=== PATIENT | male | born 1960 | race Hispanic/Latino ===

== ENCOUNTER 2022-07-15 12:04 | Emergency (ER) | payer MEDICARE, MEDICAID, SELFPAY ==
[2022-07-15] VITALS (26 sets, daily range): BP systolic 177–202; BP diastolic 103–120; PULSE 77–98; RESP 13–27; TEMP 36.7; O2SAT 90–100
--- NOTE | ~2022-07-15 | XR_ITS ---
EXAMINATION: XR chest 2V 07/15/2022 12:42 INDICATION: Chest pressure. Hypertension. PROCEDURE: PA and lateral views of the chest COMPARISON: No prior studies for comparison. FINDINGS: The lungs are clear. The cardiomediastinal silhouette is within normal limits. There are no pleural effusions. There is no pneumothorax suspected. IMPRESSION: 1: NO ACUTE CARDIOPULMONARY DISEASE. Reviewed, dictated and finalized at location A.
--- NOTE | ~2022-07-15 | CT_ITS ---
EXAMINATION: CT BRAIN W/O DATE: 07/15/2022 13:10 INDICATION: Headache and dizziness TECHNIQUE: Computed tomography (CT) of the head was performed without intravenous contrast. The dose- length product was 605.33 mGy-cm. Automated exposure control and iterative reconstruction technique w ere employed. COMPARISON: No prior studies for comparison. FINDINGS: Normal brain parenchymal volume for age. Normal vines-white differentiation. No acute intrac ranial hemorrhage, infarction, mass or mass effect. No ventriculomegaly or midline shift. Midline sagittal images demonstrate a normal corpus callosum, c raniovertebral junction and sella turcica. Basilar cisterns are patent. There is mucosal thickening of the sphenoid sinuses. Mastoids are pneumatized. No depressed skull fra ctures. IMPRESSION: 1. No acute intracranial abnormality. Reviewed, dictated and finalized at location A.
--- NOTE | 2022-07-15 12:17 | ECG_ITS ---
Measurements Intervals [place] Rate: 93 P: 60 [place]: 158 QRS: 76 QRSD: 84 T: 52 QT: 354 QTc: 441 Interpretive Statements SINUS RHYTHM POSSIBLE LEFT ATRIAL ENLARGEMENT [-0.1mV P WAVE IN V1/V2] NO PREVIOUS ECG AVAILABLE FOR COMPARISON Electronically Signed On 07-16-2022 11:24:27 CDT by Kae Salazar M.D.
[2022-07-15 12:34] LABS: Basophils Absolute Auto 0.1 K/mm3 (0.0-0.1); Basophils Percent Auto 0.7 % (0.2-1.2); Eosinophils Percent Auto 0.1 % (0-4.4); Hematocrit 43.5 % (42.0-52.0); Hemoglobin 15.5 g/dL (14.0-18.0); Immature Granulocyte Absolute 0.04 K/mm3 (0.00-0.031); Immature Granulocyte Percent A 0.4 % (0-0.5); Lymphocytes Percent Auto 15.2 % (18.3-44.2); Mean Corpuscular HGB Conc 35.6 g/dl (32-36); Mean Corpuscular Hemoglobin 31.3 pg (26-34); Mean Corpuscular Volume 87.9 fl (80-100); Mean Platelet Volume 8.9 fl (7.4-10.4); Monocytes Absolute Auto 0.5 K/mm3 (0.1-0.6); Monocytes Percent Auto 5.3 % (2.6-8.5); Neutrophils Absolute Auto 7.2 K/mm3 (1.3-6.7); Neutrophils Percent Auto 78.3 % (45.5-73.1); Platelet Count Result 247 k/mm3 (150-375); Red Blood Count 4.95 M/mm3 (4.6-6.20); Red Cell Distribution Width 11.4 % (11.5-14.5); White Blood Count 9.2 K/mm3 (4.5-10.0)
[2022-07-15 12:44] LABS: Prothrombin Time 12.7 Seconds (11.1-14.7)
[2022-07-15 12:45] LABS: Partial Thromboplastin Time 29.6 SECONDS (22.3-36.8)
[2022-07-15 12:46] LABS: Alanine Aminotransferase 41 U/L (6-50); Albumin Level 4.8 g/dL (3.5-5.1); Alkaline Phosphatase 63 U/L (38-126); Anion Gap 13 mmol/L (8-16); Aspartate Amino Transferase 47 U/L (17-59); Bilirubin,Total 0.8 mg/dL (0.2-1.3); Blood Urea Nitrogen 16 mg/dL (9-20); Calcium 9.4 mg/dL (8.4-10.2); Carbon Dioxide 27 mmol/L (22-30); Chloride 98 mmol/L (98-107); Estimated Glomerular Filt Rate > 60; Glucose 153 mg/dL (65-110); Lipase 37 U/L (23-300); Potassium 3.4 mmol/L (3.4-5.0); Sodium 138 mmol/L (137-145)
[2022-07-15 12:57] LABS: Troponin I < 0.012 ng/mL (0.000-0.034)
[2022-07-15] MEDS: ASPIRIN 81 MG CHEWABLE TABLET 324 MG PO (13:22)
[2022-07-15] MEDS: lisinopriL 20 MG TABLET PO (13:22)
[2022-07-15] MEDS: METOPROLOL TARTRATE 50 MG TAB 25 MG PO (13:22)
--- NOTE | 2022-07-15 13:33 | ED.GENADULT ---
HPI - General Adult General Chief complaint: Recheck/Abnormal Lab/Rx Stated complaint: High blood pressure Time Seen by Provider: 07/15/22 12:09 Source: patient, family and RN notes reviewed Mode of arrival: ambulatory Limitations: no limitations History of Present Illness HPI narrative: THis is a 62 year old male with history of DM, hypertension and hyperlipidemia who presents for evaluation of elevated blood pressure. Patient takes lisinopril 20 mg for hypertension. HE has been prescribed toprol xl as well but he does not take it. He did not take his lisinopril today either. His girlfriend has been checking his blood pressure this week it is has been elevated to 170s systolic. Today she checked it again and it was 190s systolic. He reports having nonradiating chest tightness after he saw that his blood pressure was high. He also reports some shortness of breath. He denies headache currently but he told triage he has headaches. He denies focal weakness. He states 5 years ago he was admitted to hospital for hypertension and he was evaluated by Dr. Null. He had a cardiac cath at that time that showed some disease but it did not require stenting. His girlfriend states patient drinks daily. she is concerned his hypertension is due to heavy drinking. Patient states he drinks a pack a beer daily but he denies history of withdrawal. Related Data Home Medications Medication Instructions Recorded Confirmed citalopram 20 mg tablet mg 07/15/22 esomeprazole magnesium 20 mg mg 07/15/22 capsule,delayed release eszopiclone 3 mg tablet mg 07/15/22 lisinopril 20 mg tablet mg 07/15/22 metoprolol succinate 50 mg mg PO 07/15/22 tablet,extended release 24 hr rosuvastatin 10 mg tablet mg 07/15/22 Allergies Allergy/AdvReac Type Severity Reaction Status Date / Time No Known Allergies Allergy Verified 07/15/22 12:16 Review of Systems Review of Systems: All systems reviewed & are unremarkable except as noted in HPI and below Constitutional: Constitutional: Denies chills, Denies fatigue and Denies fever(s) Eyes: Eyes: Denies change in vision and Denies photophobia ENT: Denies nasal congestion Cardiovascular: Cardiovascular: Reports chest pain, Denies rapid heart rate and Denies radiating jaw, neck or arm pain Respiratory: Respiratory: Denies cough PMFSH Past Medical History Medical History (Updated 07/15/22 @ 20:46 by Cherry Echols MD) Diabetes mellitus Hyperlipidemia Hypertension Surgical History Surgical History (Updated 07/15/22 @ 20:46 by Cherry Echols MD) H/O cardiac catheterization Social History Social History (Updated 07/15/22 @ 20:46 by Cherry Echols MD) Smoking status: Former smoker Alcohol intake: current Exam Const: General: no acute distress and alert Nutritional Appearance: well nourished Orientation/consciousness: patient oriented x3 HENMT: Head: normal to inspection Face and sinus: normal facial exam Teeth and gingiva: dentition normal Throat: posterior oropharynx normal Eyes: Conjunctivae: conjunctivae normal Pupils: Equal, round and reactive pupils present EOM: EOMs intact bilaterally Chest: Chest palpation & inspection: normal inspection of the chest Resp: Effort & Inspection: normal respiratory effort Auscultation: clear to auscultation bilaterally Cardio: Rate: regular rate Rhythm: regular rhythm Heart sounds: no murmurs GI: GI Palp: Yes Soft to palpation, No Tenderness to palpation present (GI), No Guarding due to palpation present (GI) and No Rigid due to palpation Auscultation: normal bowel sounds Skin: General skin exam: normal color Rashes: no rashes Wounds: no wounds Neuro: General: patient oriented x3, moves all extremities, no focal motor deficits and CN's II-XI intact bilaterally Cranial nerves: Yes Nystagmus not present Speech: normal speech Gait exam (Neuro): Normal gait present Extrem: General: normal to inspection Psy
[2022-07-15] MEDS: hydrALAZINE HCL 20 MG/ML VIAL 10 MG IV PUSH (14:51)
[2022-07-15 16:05] LABS: Troponin I < 0.012 ng/mL (0.000-0.034)
== END 2022-07-15 16:32 | disposition home or self-care (01) ==
PROVIDERS: Emergency Provider General Practice; PCP Internal Medicine
DX: I10 Essential (primary) hypertension (principal); E11.9 Type 2 diabetes mellitus without complications; E78.5 Hyperlipidemia, unspecified; Z87.891 Personal history of nicotine dependence; R07.89 Other chest pain; R94.31 Abnormal electrocardiogram [ECG] [EKG]
CPT/HCPCS: 36415; 70450; 71046; 80053; 83690; 84484; 85025; 85610; 85730; 93005; 96374; 99284; A9270; J0360

== ENCOUNTER 2023-05-15 12:40 | Emergency (ER) | payer MEDICARE, MEDICAID, SELFPAY ==
[2023-05-15 12:44] VITALS: BP 173/89; PULSE 79; RESP 16; TEMP 37; O2SAT 99
[2023-05-15 12:57] LABS: Basophils Percent Auto 0.3 % (0.2-1.2); Eosinophils Percent Auto 0.3 % (0-4.4); Hematocrit 41.5 % (42.0-52.0); Hemoglobin 14.3 g/dL (14.0-18.0); Immature Granulocyte Absolute 0.01 K/mm3 (0.00-0.031); Immature Granulocyte Percent A 0.1 % (0-0.5); Lymphocytes Absolute Auto 0.99 K/mm3 (0.9-3.2); Lymphocytes Percent Auto 12.4 % (18.3-44.2); Mean Corpuscular HGB Conc 34.5 g/dl (32-36); Mean Corpuscular Hemoglobin 31.4 pg (26-34); Mean Corpuscular Volume 91.2 fl (80-100); Mean Platelet Volume 9.2 fl (7.4-10.4); Monocytes Absolute Auto 0.4 K/mm3 (0.1-0.6); Monocytes Percent Auto 5.1 % (2.6-8.5); Neutrophils Absolute Auto 6.6 K/mm3 (1.3-6.7); Neutrophils Percent Auto 81.8 % (45.5-73.1); Platelet Count Result 199 k/mm3 (150-375); Red Blood Count 4.55 M/mm3 (4.6-6.20); Red Cell Distribution Width 11.6 % (11.5-14.5)
[2023-05-15 13:06] LABS: Alanine Aminotransferase 45 U/L (6-50); Albumin Level 4.7 g/dL (3.5-5.1); Alkaline Phosphatase 50 U/L (38-126); Anion Gap 6 mmol/L (8-16); Aspartate Amino Transferase 38 U/L (17-59); Blood Urea Nitrogen 23 mg/dL (9-20); Calcium 9.8 mg/dL (8.4-10.2); Carbon Dioxide 28 mmol/L (22-30); Chloride 102 mmol/L (98-107); Estimated CRCL calculation 88 ml/min; Estimated Glomerular Filt Rate > 60; Glucose 147 mg/dL (65-110); Lipase 36 U/L (23-300); Potassium 3.9 mmol/L (3.4-5.0); Sodium 136 mmol/L (137-145)
[2023-05-15 13:09] LABS: Glucose Point of Care 142 mg/dl (65-105)
--- NOTE | 2023-05-15 14:01 | PC.NURSE ---
Patient to desk stating, he feels better and wants to go home to rest . Patient seen ambulating out of ED with steady gait and in no acute distress.
== END 2023-05-15 14:01 | disposition left against medical advice (07) ==
LOC: ANHED 14:04
PROVIDERS: Emergency Provider Emergency Medicine; PCP Internal Medicine
DX: R10.9 Unspecified abdominal pain (principal); R11.2 Nausea with vomiting, unspecified
CPT/HCPCS: 36415; 80053; 82948; 83690; 85025; 99199

== ENCOUNTER 2023-10-14 21:06 | Emergency (ER) | payer MEDICARE, MEDICAID, SELFPAY ==
--- NOTE | ~2023-10-14 | XR_ITS ---
Portable chest x-ray Comparison: 07/15/2022 Clinical History: Chest pain Findings: Lungs are clear, without focal consolidation or pleural effusion. Cardiomediastinal silho uette is stable. Bones and soft tissues are unremarkable. Impression: Normal chest. Reviewed, dictated and finalized at [facility]. [facility] Impression: Normal chest.
[2023-10-14 21:08] VITALS: BP 177/90; PULSE 81; RESP 16; TEMP 36.3; O2SAT 99
[2023-10-14 21:55] VITALS: BP 164/93; PULSE 64; RESP 22; O2SAT 97
[2023-10-14 22:25] VITALS: BP 147/85
[2023-10-14 23:12] VITALS: PULSE 69; RESP 19; O2SAT 96
--- NOTE | 2023-10-15 | ECG_ITS ---
Measurements Intervals [place] Rate: 78 P: 61 [place]: 179 QRS: 56 QRSD: 91 T: 35 QT: 341 QTc: 388 Interpretive Statements SINUS RHYTHM BASELINE ARTIFACT- I, III, AVR, AVL, AVF, V1-V6 NORMAL ECG COMPARED TO ECG 07/15/2022 12:21:30 NO SIGNIFICANT CHANGES Electronically Signed On 10-15-2023 8:26:55 [employer]STRUCTOR [employer] by Eric Carbajal D.O.
--- NOTE | 2023-10-15 00:03 | ED.GENADULT ---
HPI - General Adult General Chief complaint: Recheck/Abnormal Lab/Rx Stated complaint: htn Time Seen by Provider: 10/14/23 23:23 Source: patient Mode of arrival: ambulatory Limitations: no limitations History of Present Illness HPI narrative: This is a 63-year-old male with PMH of HTN, HLD, CAD who presents to the ED with chief complaint of elevated blood pressures. He also reports mild headache that has been decreasing ever since onset yesterday. Reports 3 of 10 headache now. denies any vision change, numbness or weakness. Also reports intermittent chest tightness but denies any chest pain. Denies shortness of breath, vomiting, syncope, diaphoresis. States he has been checking his blood pressure multiple times per day due to high readings with systolic up to the 190s. Related Data Home Medications Medication Instructions Recorded Confirmed citalopram 20 mg tablet mg 07/15/22 esomeprazole magnesium 20 mg mg 07/15/22 capsule,delayed release eszopiclone 3 mg tablet mg 07/15/22 lisinopril 20 mg tablet mg 07/15/22 metoprolol succinate 50 mg mg PO 07/15/22 tablet,extended release 24 hr rosuvastatin 10 mg tablet mg 07/15/22 Allergies Allergy/AdvReac Type Severity Reaction Status Date / Time No Known Allergies Allergy Verified 10/14/23 21:57 Review of Systems Review of Systems: All systems as dictated in [facility] Past Medical History Medical History (Updated 10/15/23 @ 00:07 by Huy Swanson PA-C) Diabetes mellitus Hyperlipidemia Hypertension Surgical History Surgical History (Updated 07/15/22 @ 20:46 by Cherry Echols MD) H/O cardiac catheterization Social History Social History (Updated 07/15/22 @ 20:46 by Cherry Echols MD) Smoking status: Former smoker Alcohol intake: current Exam Narrative: GENERAL: Well-appearing, well-nourished, and in no acute distress. HEAD: Normocephalic, atraumatic. EYES: PERRLA and EOMI. ENT: Nares clear, no rhinorrhea or epistaxis. Mucous membranes moist. Oropharynx without tonsillar hypertrophy exudate or other lesions. NECK: Supple. No adenopathy or masses. CHEST: No respiratory distress. Clear to auscultation. No wheezes rales or rhonchi HEART: Regular rate and rhythm. No murmur heard. Normal peripheral pulses. ABDOMEN: Soft, nontender, nondistended, normal active bowel sounds. MSK: Normal range of motion. No edema. SKIN: Warm, dry, no rash. NEURO: Alert and oriented x3. No focal deficits. PSYCH: Normal mood and affect. Course Vital Signs Vital signs: Vital Signs Temperature 97.4 F L 10/14/23 21:08 Pulse Rate 81 10/14/23 21:08 Respiratory Rate 16 10/14/23 21:08 Blood Pressure 177/90 H 10/14/23 21:08 Pulse Oximetry 99 10/14/23 21:08 Oxygen Delivery Room Air 10/14/23 21:08 Temperature 97.4 F L 10/14/23 21:08 Pulse Rate 74 10/15/23 00:33 Respiratory Rate 17 10/15/23 00:33 Blood Pressure 163/93 H 10/15/23 00:33 Pulse Oximetry 95 10/15/23 00:33 Oxygen Delivery Room Air 10/14/23 21:[address] [facility] Narrative Medical decision making narrative: This is a 63-year-old male who presents to the ED for chief concern over her high blood pressures. Reports that he has had intermittent headache chest tightness as well. Denies any chest pain or shortness of breath. Vitals are normal. Exam remarkable for the above. No neuro deficits. Headache is very mild at this point. He improved greatly with Tylenol here. ECG shows normal sinus rhythm. CBC and CMP unremarkable. Troponin is normal. Blood pressure is elevated but does not indicate any emergent hypertension at this point. He feels ready to go home after re-evaluation. He is comfortable following up with his PCP and overcaster. Return precautions given and supportive measures were all discussed. Vital Signs Vital Signs: Vital Signs Temperature 97.4 F L 10/14/23 21:08 Pulse Rate 81 10/14/23 21:08 Res
[2023-10-15] MEDS: ACETAMINOPHEN 500 MG TABLET 1000 MG PO (00:19)
[2023-10-15 00:30] LABS: Basophils Percent Auto 0.4 % (0.2-1.2); Eosinophils Absolute Auto 0.2 K/mm3 (0-0.3); Hematocrit 39.2 % (42.0-52.0); Hemoglobin 13.4 g/dL (14.0-18.0); Immature Granulocyte Absolute 0.02 K/mm3 (0.00-0.031); Immature Granulocyte Percent A 0.3 % (0-0.5); Lymphocytes Absolute Auto 0.82 K/mm3 (0.9-3.2); Lymphocytes Percent Auto 10.8 % (18.3-44.2); Mean Corpuscular HGB Conc 34.2 g/dl (32-36); Mean Corpuscular Hemoglobin 31.2 pg (26-34); Mean Corpuscular Volume 91.2 fl (80-100); Mean Platelet Volume 10.1 fl (7.4-10.4); Monocytes Absolute Auto 0.4 K/mm3 (0.1-0.6); Monocytes Percent Auto 4.7 % (2.6-8.5); Neutrophils Absolute Auto 6.2 K/mm3 (1.3-6.7); Neutrophils Percent Auto 81.8 % (45.5-73.1); Platelet Count Result 186 k/mm3 (150-375); Red Cell Distribution Width 11.5 % (11.5-14.5); White Blood Count 7.6 K/mm3 (4.5-10.0)
[2023-10-15 00:33] VITALS: BP 163/93; PULSE 74; RESP 17; O2SAT 95
[2023-10-15 00:39] LABS: Alanine Aminotransferase 27 U/L (6-50); Albumin Level 4.2 g/dL (3.5-5.1); Alkaline Phosphatase 41 U/L (38-126); Anion Gap 11 mmol/L (8-16); Aspartate Amino Transferase 32 U/L (17-59); Bilirubin,Total 0.8 mg/dL (0.2-1.3); Blood Urea Nitrogen 10 mg/dL (9-20); Calcium 9.5 mg/dL (8.4-10.2); Carbon Dioxide 23 mmol/L (22-30); Chloride 105 mmol/L (98-107); Estimated CRCL calculation 118 ml/min; Estimated Glomerular Filt Rate > 60; Glucose 104 mg/dL (65-110); Potassium 3.8 mmol/L (3.4-5.0); Sodium 139 mmol/L (137-145)
[2023-10-15 00:51] LABS: Troponin I < 0.012 ng/mL (0.000-0.034)
== END 2023-10-15 01:17 | disposition home or self-care (01) ==
PROVIDERS: Emergency Provider Physician Assistant; PCP Internal Medicine
DX: I10 Essential (primary) hypertension (principal); I25.10 Atherosclerotic heart disease of native coronary artery without angina pectoris; E78.5 Hyperlipidemia, unspecified; E11.9 Type 2 diabetes mellitus without complications; Z87.891 Personal history of nicotine dependence
CPT/HCPCS: 36415; 71045; 80053; 84484; 85025; 93005; 99284; A9270

== ENCOUNTER 2023-11-15 22:09 | Emergency (ER) | payer MEDICARE, MEDICAID, SELFPAY ==
--- NOTE | ~2023-11-15 | XR_ITS ---
EXAMINATION: XR chest 2V DATE: 11/15/2023 22:44 INDICATION: Chest pressure. Shortness of breath. TECHNIQUE: Frontal and lateral views of the chest were obtained. COMPARISON: Chest single view 10/15/2023 FINDINGS: There is no pneumonia, pleural effusion, or pneumothorax. The heart size is normal. IMPRESSION: 1. No acute cardiopulmonary disease. Reviewed, dictated and finalized at location E. [employer] PROJECT MANAGER
[2023-11-15 22:21] VITALS: BP 135/63; PULSE 82; RESP 16; TEMP 36.4; O2SAT 96
--- NOTE | 2023-11-15 22:24 | ECG_ITS ---
Measurements Intervals [place] Rate: 75 P: 73 [place]: 169 QRS: 78 QRSD: 81 T: 58 QT: 361 QTc: 404 Interpretive Statements SINUS RHYTHM NORMAL ECG COMPARED TO ECG 10/15/2023 00:15:34 NO SIGNIFICANT CHANGES Electronically Signed On 11-16-2023 8:03:56 PHYSIATRIST by Elier Lacy M.D.
[2023-11-15 23:19] LABS: Basophils Percent Auto 0.5 % (0.2-1.2); Eosinophils Absolute Auto 0.2 K/mm3 (0-0.3); Eosinophils Percent Auto 3.4 % (0-4.4); Hematocrit 36.8 % (42.0-52.0); Immature Granulocyte Absolute 0.01 K/mm3 (0.00-0.031); Immature Granulocyte Percent A 0.2 % (0-0.5); Lymphocytes Absolute Auto 1.48 K/mm3 (0.9-3.2); Lymphocytes Percent Auto 26.7 % (18.3-44.2); Mean Corpuscular HGB Conc 35.3 g/dl (32-36); Mean Corpuscular Hemoglobin 30.7 pg (26-34); Mean Platelet Volume 9.9 fl (7.4-10.4); Monocytes Absolute Auto 0.6 K/mm3 (0.1-0.6); Monocytes Percent Auto 10.1 % (2.6-8.5); Neutrophils Absolute Auto 3.3 K/mm3 (1.3-6.7); Neutrophils Percent Auto 59.1 % (45.5-73.1); Platelet Count Result 240 k/mm3 (150-375); Red Blood Count 4.23 M/mm3 (4.6-6.20); Red Cell Distribution Width 11.4 % (11.5-14.5); White Blood Count 5.6 K/mm3 (4.5-10.0)
[2023-11-15 23:49] LABS: Alanine Aminotransferase 23 U/L (6-50); Alkaline Phosphatase 61 U/L (38-126); Anion Gap 8 mmol/L (8-16); Aspartate Amino Transferase 31 U/L (17-59); Bilirubin,Total 0.4 mg/dL (0.2-1.3); Blood Urea Nitrogen 12 mg/dL (9-20); Calcium 9.1 mg/dL (8.4-10.2); Carbon Dioxide 23 mmol/L (22-30); Chloride 100 mmol/L (98-107); Estimated CRCL calculation 87 ml/min; Estimated Glomerular Filt Rate > 60; Glucose 125 mg/dL (65-110); Lipase 208 U/L (23-300); Potassium 3.9 mmol/L (3.4-5.0); Sodium 131 mmol/L (137-145)
[2023-11-16] VITALS (17 sets, daily range): BP systolic 85–143; BP diastolic 55–88; PULSE 62–103; RESP 9–21; O2SAT 90–100
[2023-11-16] LABS: Troponin I < 0.012 ng/mL (0.000-0.034)
[2023-11-16 00:35] LABS: INR 0.9; Partial Thromboplastin Time 30.4 SECONDS (22.3-36.8); Prothrombin Time 12.4 Seconds (11.1-14.7)
--- NOTE | 2023-11-16 01:57 | ECG_ITS ---
Measurements Intervals [place] Rate: 79 P: 46 [place]: 175 QRS: 47 QRSD: 79 T: 37 QT: 360 QTc: 413 Interpretive Statements SINUS RHYTHM POSSIBLE RIGHT VENTRICULAR CONDUCTION DELAY [RSR (QR) IN V1/V2] BORDERLINE ECG COMPARED TO ECG 11/15/2023 22:32:47 NO SIGNIFICANT CHANGES Electronically Signed On 11-16-2023 8:04:55 [employer]EL[employer] by Elier Lacy M.D.
[2023-11-16] MEDS: ASPIRIN 81 MG CHEWABLE TABLET 324 MG PO (02:08)
[2023-11-16 02:28] LABS: Troponin I < 0.012 ng/mL (0.000-0.034)
[2023-11-16] MEDS: NITROGLYCERIN SL 0.4 MG TABLET SUBLINGUAL (03:09)
--- NOTE | 2023-11-16 03:09 | PC.NURSE ---
Pain 7/10. First nitro given
--- NOTE | 2023-11-16 03:13 | ED.GENADULT ---
HPI - General Adult General Chief complaint: Shortness of Breath/Dyspnea Stated complaint: shortness of breath Time Seen by Provider: 11/16/23 02:01 History of Present Illness HPI narrative: Patient is a 63-year-old gentleman who presents emergency department with chief complaint of chest heaviness and shortness of breath. The patient states that for some time he has been having these episodes but it has been pretty well constant for the last 4 hours the patient reports symptoms are not improved by anything nor they worsened by anything. The patient denies fever denies cough reports that he has had a cardiac stress reports he has history of hypertension diabetes and hyperlipidemia. Related Data Home Medications Medication Instructions Recorded Confirmed citalopram 20 mg tablet mg 07/15/22 esomeprazole magnesium 20 mg mg 07/15/22 capsule,delayed release eszopiclone 3 mg tablet mg 07/15/22 lisinopril 20 mg tablet mg 07/15/22 metoprolol succinate 50 mg mg PO 07/15/22 tablet,extended release 24 hr rosuvastatin 10 mg tablet mg 07/15/22 Allergies Allergy/AdvReac Type Severity Reaction Status Date / Time No Known Allergies Allergy Verified 11/15/23 22:09 Review of Systems Review of Systems: A 10 system review of systems was completed on the patient and is negative except for what is stated in the HPI. Nursing and ancillary documentation was reviewed. [facility] Past Medical History Medical History Diabetes mellitus Hyperlipidemia Hypertension Surgical History Surgical History H/O cardiac catheterization Social History Social History Smoking status: Former smoker Alcohol intake: current Exam Narrative: GENERAL: Well-appearing, well-nourished, and in no acute distress. HEAD: Normocephalic, atraumatic. EYES: PERRLA and EOMI. ENT: Nares clear, no rhinorrhea or epistaxis. Mucous membranes moist. NECK: Supple. CHEST: Clear to auscultation. No respiratory distress. HEART: Regular rate and rhythm. No murmur heard. Normal peripheral pulses. ABDOMEN: Soft, nontender, nondistended, normal active bowel sounds. EXTREMITIES: Normal range of motion. No edema. SKIN: Warm, dry, no rash. NEURO: No focal deficits. Alert and oriented x3. PSYCH: Normal mood and affect. Course Vital Signs Vital signs: Vital Signs Temperature 36.4 C L 11/15/23 22:21 Pulse Rate 82 11/15/23 22:21 Respiratory Rate 16 11/15/23 22:21 Blood Pressure 135/63 11/15/23 22:21 Pulse Oximetry 96 11/15/23 22:21 Oxygen Delivery Room Air 11/15/23 22:21 Temperature 36.4 C L 11/15/23 22:21 Pulse Rate 69 11/16/23 04:31 Respiratory Rate 16 11/16/23 04:31 Blood Pressure 136/85 11/16/23 04:31 Pulse Oximetry 97 11/16/23 04:31 Oxygen Delivery Room Air 11/16/23 02:10 Medical Decision Making MDM Narrative Medical decision making narrative: differential diagnosis includes pneumonia, CHF, CAD, laboratory studies were obtained on the patient showed a white count of 5.6 hemoglobin 13.0 electrolytes within normal limits initial troponin was negative BNP was 33 chest x-ray showed no focal infiltrate EKG showed no acute ischemic changes D-dimer was negative since the patient's symptoms have been ongoing for several months now and is undergoing a workup as an outpatient this time it is safe to let the patient go home and follow-up as an outpatient Vital Signs Vital Signs: Vital Signs Temperature 36.4 C L 11/15/23 22:21 Pulse Rate 82 11/15/23 22:21 Respiratory Rate 16 11/15/23 22:21 Blood Pressure 135/63 11/15/23 22:21 Pulse Oximetry 96 11/15/23 22:21 Oxygen Delivery Room Air 11/15/23 22:21 Temperature 36.4 C L 11/15/23 22:21 Pulse Rate 69 11/16/23 04:31 Res
[2023-11-16 03:14] LABS: NT Pro B Type Natriuretic Pept 33 pg/mL (19.9-100)
--- NOTE | 2023-11-16 03:36 | PC.NURSE ---
Pt states pain now 03/16. Next nitro given
[2023-11-16 03:42] LABS: D Dimer 0.35 ug/mL (<0.48)
--- NOTE | 2023-11-16 03:46 | PC.NURSE ---
Pt reports pain remains 6/10 at this time. Will administer 3rd nitro.
[2023-11-16 05:04] LABS: Troponin I < 0.012 ng/mL (0.000-0.034)
== END 2023-11-16 05:22 | disposition home or self-care (01) ==
PROVIDERS: Emergency Provider Emergency Medicine; PCP Internal Medicine
DX: R07.89 Other chest pain (principal); I10 Essential (primary) hypertension; E11.9 Type 2 diabetes mellitus without complications; E78.5 Hyperlipidemia, unspecified; Z87.891 Personal history of nicotine dependence; R94.31 Abnormal electrocardiogram [ECG] [EKG]
CPT/HCPCS: 36415; 71046; 80053; 83690; 83880; 84484; 85025; 85380; 85610; 85730; 93005; 99284; A9270